=== PATIENT | male | born 1940 | race Caucasian/White ===

== ENCOUNTER → 2016-07-21 | Outpatient (CLI) | payer MEDICARE | END | disposition home or self-care (01) | LOC: PCVCIMAG 09:24 | PROVIDERS: ATTEND Internal Medicine Cardiovascular Disease | DX: I87.2 Venous insufficiency (chronic) (peripheral) (principal); I70.213 Atherosclerosis of native arteries of extremities with intermittent claudication, bilateral legs; E11.9 Type 2 diabetes mellitus without complications; E78.5 Hyperlipidemia, unspecified; I10 Essential (primary) hypertension; Z95.1 Presence of aortocoronary bypass graft | CPT/HCPCS: 93925; 93970 ==

== ENCOUNTER → 2016-07-25 | Outpatient (CLI) | payer MEDICARE ==
[~2016-07-25] MED LIST: DIAZEPAM 10 MG TABLET. ONE; EPTIFIBATIDE BOLUS 2,000 MCG/ML 10ML VIAL. IV ONE; HEPARIN SODIUM 5,000 UNIT/ML VIAL for PCVC. ONE; HYDROcodone/APAP 5/325MG 1 TAB TABLET ONE; IODIXANOL 270 MG/ML 100 ML VIAL. ONE; IV NORMAL SALINE 1000ML BAG 1,000 ML ONE; LIDOCAINE 1% Multi-Dose 20 ML VIAL. ONE; MIDAZOLAM HCL/PF 2 MG/2 ML VIAL. ONE; VANCOMYCIN 1GM IVPB FOR OMNI 0 ML ONE; fentaNYL PF VIAL 100 MCG/2 ML VIAL ONE
--- NOTE | 2016-07-25 18:14 | PCVCINTER ---
EXAM: 1. AORTOGRAM AND BILATERAL LOWER EXTREMITY RUNOFF ANGIOGRAM 2. BILATERAL RENAL ANGIOGRAPHY INDICATION: Peripheral arterial disease. Coronary artery disease. Nonhealing ulcer right lower extremity. Hypertension. Renal atherosclerosis. PROCEDURE: Procedure and risks of angiography intervention is appropriate including limb loss stroke and were discussed with the patient's family and consent obtained. The patient's left groin was prepped abnormal sterile fashion. IV conscious sedation was used to procedure with appropriate monitoring for 60 minutes. Ultrasound was used to interrogate the left groin and showed the left common femoral artery to be patent. A permanent spot film was obtained. Under ultrasound guidance access into the left common femoral artery was obtained and a 5 Italian sheath was placed. Through this a 5 Italian flush catheter was placed into the abdominal aorta at the level of the renal arteries and AP aortogram was performed. Catheter was positioned at the aortic bifurcation and both oblique views of the pelvis were obtained. Catheter was positioned into the left external iliac artery and right leg runoff angiography was performed. Catheter was exchanged for a visceral catheter was placed into the right renal arteries and right renal angiograms obtained. Catheter was placed into the the left renal arteries and left renal angiograms were obtained. Catheter was advanced to the level of the right external iliac artery and left leg runoff angiography was obtained. Catheters and wires removed. Sheath was removed and hemostasis obtained using the Exoseal device. No immediate complications. FINDINGS: Aortogram: There is one right and one left renal artery. Moderate plaque infrarenal abdominal aorta without significant stenosis. Pelvis: Moderate plaque at the origins of the right and left common iliac arteries causing only minimal stenosis not felt to be flow-limiting. Both internal iliac arteries are patent. Both external iliac arteries show good patency. The common femoral and profunda femoral arteries are patent bilaterally. Right renal artery: Mild plaque proximal vessel does not cause significant stenosis. No branch vessel stenosis. Left renal artery: Mild plaque proximal vessel does not cause significant stenosis. No branch vessel stenosis. Right leg: Common femoral and profunda femoral arteries are patent. Scattered plaque superficial femoral artery and popliteal artery without evidence of significant stenosis. Segmental occlusion in the mid anterior tibial artery with multiple stenoses proximal and distal to the occlusion. The distal most anterior tibial artery is a moderate size vessel and refills into a moderate-sized dorsalis pedis. The dominant runoff vessel is the peroneal artery which has only mild stenosis at its origin and then shows good patency to refill a small distal posterior tibial artery. The proximal and mid posterior tibial artery shows chronic occlusion. The plantar arteries are small in disease. Left leg: Common femoral and profunda femoral arteries are patent. Moderate plaque superficial femoral artery and popliteal artery without flow-limiting stenosis. Posterior tibial artery shows long segment occlusion throughout. 99% focal stenosis tibioperoneal trunk with 90% stenosis at the origin of the peroneal artery. Peroneal artery then shows satisfactory patency to refill the distal most posterior tibial artery. Multiple high-grade stenoses throughout the anterior tibial artery with the distal vessels showing satisfactory patency into the dorsalis pedis. IMPRESSION: Severe bilateral infrapopliteal arterial occlusive disease as reviewed above. Patient does have some options for percutaneous revascularization. This was not performed today because the patient's right-sided ulcer has healed. Patient was instructed to contact us in the future if he develops any rest pain or nonhealing ulcers. LOC:[place] [id number]
== END | disposition home or self-care (01) ==
LOC: PCVCINTER 08:15
PROVIDERS: ATTEND Nuclear Medicine Nuclear Cardiology
DX: I70.238 Atherosclerosis of native arteries of right leg with ulceration of other part of lower leg (principal); I70.1 Atherosclerosis of renal artery; I77.1 Stricture of artery; I10 Essential (primary) hypertension
CPT/HCPCS: 36246; 36252; 75716; 76937; 99152; 99153; C1751; C1760; C1769; C1894; J2250; J3010; J7030; Q9966; J1327; J1644; J3370

== ENCOUNTER → 2016-08-25 | Outpatient (CLI) | payer MEDICARE | END | disposition home or self-care (01) | LOC: PCVCCLINIC 11:51 | PROVIDERS: ATTEND Internal Medicine Cardiovascular Disease | DX: I45.10 Unspecified right bundle-branch block (principal); I25.10 Atherosclerotic heart disease of native coronary artery without angina pectoris; I48.2 Chronic atrial fibrillation; I73.9 Peripheral vascular disease, unspecified; I10 Essential (primary) hypertension; E11.9 Type 2 diabetes mellitus without complications; E78.5 Hyperlipidemia, unspecified; Z79.4 Long term (current) use of insulin; Z95.1 Presence of aortocoronary bypass graft; Z79.899 Other long term (current) drug therapy; Z79.82 Long term (current) use of aspirin; Z79.84 Long term (current) use of oral hypoglycemic drugs; Z79.01 Long term (current) use of anticoagulants; Z88.0 Allergy status to penicillin; Z88.6 Allergy status to analgesic agent; Z88.8 Allergy status to other drugs, medicaments and biological substances | CPT/HCPCS: 80061; 93005; G0463 ==

== ENCOUNTER → 2016-10-27 | Outpatient (CLI) | payer MEDICARE ==
[~2016-10-27] MED LIST changes: -DIAZEPAM 10 MG TABLET. ONE; -EPTIFIBATIDE BOLUS 2,000 MCG/ML 10ML VIAL. IV ONE; -HEPARIN SODIUM 5,000 UNIT/ML VIAL for PCVC. ONE; -HYDROcodone/APAP 5/325MG 1 TAB TABLET ONE; -IODIXANOL 270 MG/ML 100 ML VIAL. ONE; -IV NORMAL SALINE 1000ML BAG 1,000 ML ONE; -LIDOCAINE 1% Multi-Dose 20 ML VIAL. ONE; -MIDAZOLAM HCL/PF 2 MG/2 ML VIAL. ONE; +REGADENOSON 0.4 MG/5 ML DISP.SYRIN. IV ONE; -VANCOMYCIN 1GM IVPB FOR OMNI 0 ML ONE; -fentaNYL PF VIAL 100 MCG/2 ML VIAL ONE
--- NOTE | 2016-10-27 17:28 | PCVCIMAG ---
APPROVED REPORT Exam: Nuclear Stress Test Indication: CAD Patient Location: Out-Patient Stress Nurse: Janeth Jamil RN, TELLY Garcia Tech:Priti BOBBY Bynum Ht: 5 ft 9 in Wt: 190 lbs BSA: 2.02 m2 HR: 80 bpm BP: 143/67 mmHg BMI: 28.0 Rhythm: Atrial Fibrillation, RBBB Medical History Medical History: Atrial Fibrillation, Hyperlipidemia, Diabetes, PVD, Age Medications: Pradaxa, Plavix, Lanoxin, Lisinopril, Toprol XL, Pravachol, Nifedipine, Vascepa Allergies: No known drug allergies Previous Cardiac Procedures: CABG Pretest Chest Pain Characteristics: No chest pain Exercise History: Physically active Physical Disabilities: Hips Meds Held (24 hrs): Toprol XL NM EXAM: Myocardial Perfusion REST/STRESS Imaging Protocol: Rest Tc-99m/Stress Tc-99m 1 day Resting Data Rest SPECT myocardial perfusion imaging was performed in supine position 45 minutes following the intravenous injection of 9.3 mCi of Tc-99m Sestamibi. Time of rest injection: 904 Date: 10/27/2016 Administration Route: IV Administration Site: Right AC Pharmacologic Stress Pharmacologic stress test was performed by injecting Regadenoson 0.4 mg IV push followed by the intravenous injection of 34.2 mCi of Tc-99m Sestamibi. Time of stress injection: 1024 Date: 10/27/2016 Administration Route: IV Administration Site: Right AC Gated Stress SPECT was performed 45 minutes after stress injection. The images were gated to evaluate regional wall motion and calculate left ventricular ejection fraction. Study Quality Study: Good Study Data Post stress, the left ventricular ejection was 60%.. SSS: 8 SRS: 1 SDS: 7 TID = 1.04. Perfusion Medium sized area of moderate reversible ischemia involving the mid/basal inferolateral left ventricle consistent with a circumflex distribution. Wall Motion Normal left ventricular size and function with no regional wall motion abnormalities. Nuclear Conclusion Medium sized area of moderate reversible ischemia involving the mid/basal inferolateral left ventricle consistent with a circumflex distribution has developed since October 2014. Normal left ventricular size and function with no regional wall motion abnormalities. Post stress, the left ventricular ejection was 60%.. Interpreted by: Gregory Casper MD Electronically Approved: 10/27/2016 12:54:46 Stress Test Details Stress Test: Pharmacologic stress testing performed using 0.4 mg of regadenoson per 5 mL given IV over 10 seconds. Reason for pharmacologic stress test: physical limitation. HR Resting HR: 80 bpmMax Heart Rate (APMHR): 142 bpm Max HR Achieved: 100 bpmTarget HR (85% APMHR): 120 bpm % of APMHR: 70 Recovery HR: 93 bpm BP Resting BP: 143/67 mmHg Max BP: 140/68 mmHg ECG Resting ECG: Atrial Fibrillation, RBBB Stress ECG: Atrial Fibrillation, RBBB, Sinus Rhythm, NSSTT changes Recovery ECG: Atrial Fibrillation, RBBB Clinical Reason for Termination: Completed protocol Stress Symptoms: Dyspnea Symptoms resolved during recovery. Stress ECG Conclusion ECG: Non-ischemic <Conclusion> ECG: Non-ischemic
== END | disposition home or self-care (01) ==
LOC: PCVCIMAG 08:38
PROVIDERS: ATTEND Internal Medicine Cardiovascular Disease
DX: I25.10 Atherosclerotic heart disease of native coronary artery without angina pectoris (principal); I48.91 Unspecified atrial fibrillation; I45.10 Unspecified right bundle-branch block; E11.9 Type 2 diabetes mellitus without complications; E78.5 Hyperlipidemia, unspecified; I73.9 Peripheral vascular disease, unspecified; Z95.1 Presence of aortocoronary bypass graft
CPT/HCPCS: 78452; 93017; A9500; J2785

== ENCOUNTER → 2017-08-17 | Outpatient (CLI) | payer MEDICARE | END | disposition home or self-care (01) | LOC: PCVCCLINIC 13:41 | DX: I48.2 Chronic atrial fibrillation (principal); I25.810 Atherosclerosis of coronary artery bypass graft(s) without angina pectoris; R00.2 Palpitations; E11.9 Type 2 diabetes mellitus without complications; E78.00 Pure hypercholesterolemia, unspecified; Z79.4 Long term (current) use of insulin; Z79.899 Other long term (current) drug therapy; Z88.8 Allergy status to other drugs, medicaments and biological substances | CPT/HCPCS: 80061; 93005; G0463 ==

== ENCOUNTER → 2018-03-15 | Outpatient (CLI) | payer MEDICARE | END | disposition home or self-care (01) | LOC: PCVCCLINIC 11:07 | PROVIDERS: ATTEND Internal Medicine Cardiovascular Disease | DX: I25.810 Atherosclerosis of coronary artery bypass graft(s) without angina pectoris (principal); I48.2 Chronic atrial fibrillation; I10 Essential (primary) hypertension; E78.00 Pure hypercholesterolemia, unspecified; E78.5 Hyperlipidemia, unspecified; Z72.89 Other problems related to lifestyle; Z79.4 Long term (current) use of insulin; Z88.8 Allergy status to other drugs, medicaments and biological substances; Z88.0 Allergy status to penicillin | CPT/HCPCS: 36415; 80061; 93005; G0463 ==